=== PATIENT | male | born 1970 ===

== ENCOUNTER 2016-09-06 08:38 | Emergency (ER) | payer OTHER ==
--- NOTE | 2016-09-06 09:34 | UC ---
Shoulder Pain HPI - HPI Summary HPI Summary: Patient was lifting a heavy tray at work 5 days ago and woke up the next morning with pain in the front of his shoulder. Has had decreased movment in all directions since. - History of Current Complaint Chief Complaint: UCUpperExtremity Stated Complaint: ARM PAIN Time Seen by Provider: 09/06/16 09:23 Hx Obtained From: Patient Onset/Duration: Sudden Onset, Lasting Days Timing: Constant Severity Initially: Mild Severity Currently: Moderate Location Of Pain: Is Diffuse - around right shoulder Character: Aching, Stiffness Aggravating Factor(s): Movement Alleviating Factor(s): Rest Associated Signs And Symptoms: Positive: Negative Related History: Dominant Hand Right - Allergies/Home Medications Allergies/Adverse Reactions: Allergies Allergy/AdvReac Type Severity Reaction Status Date / Time No Known Allergies Allergy Verified 09/06/16 09:13 PMH/Surg Hx/FS Hx/Imm Hx Previously Healthy: Yes Endocrine History Of: Denies: Diabetes, Thyroid Disease Cardiovascular History Of: Denies: Cardiac Disorders, Hypertension Respiratory History Of: Denies: COPD, Asthma GI/ History Of: Denies: Ulcer - Surgical History Surgical History: None - Family History Known Family History: Negative: Cardiac Disease, Hypertension - Social History Alcohol Use: None Substance Use Type: None Smoking Status (MU): Never Smoked Tobacco Review of Systems Constitutional: Negative Skin: Bruising - over right ant deltoid Eyes: Negative ENT: Negative Respiratory: Negative Cardiovascular: Negative Gastrointestinal: Negative Genitourinary: Negative Motor: Negative Neurovascular: Negative Musculoskeletal: Negative Neurological: Negative Psychological: Negative All Other Systems Reviewed And Are Negative: Yes Physical Exam Triage Information Reviewed: Yes Appearance: Well-Appearing, Well-Nourished, Pain Distress Vital Signs: Initial Vital Signs Temp 97.7 F 09/06/16 09:05 Pulse 107 09/06/16 09:05 Resp 18 09/06/16 09:05 BP 146/95 09/06/16 09:05 Pulse Ox 99 09/06/16 09:05 Vital Signs Reviewed: Yes Eye Exam: Normal Eyes: Positive: Conjunctiva Clear ENT Exam: Normal ENT: Positive: Hearing grossly normal, Pharynx normal, TMs normal Dental Exam: Normal Neck exam: Normal Neck: Positive: Supple, Nontender, No Lymphadenopathy Respiratory Exam: Normal Respiratory: Positive: Chest non-tender, Lungs clear, Normal breath sounds Cardiovascular Exam: Normal Cardiovascular: Positive: RRR, No Murmur, Pulses Normal Abdominal Exam: Normal Abdomen Description: Positive: Nontender, No Organomegaly, Soft Bowel Sounds: Positive: Present Musculoskeletal: Positive: Strength Limited @ - in right arm, ROM Limited @ - ext, flex, abd, unable to perform apley sctch test due to pain. RROM 1/5 in Right shoulder., ROM in LEFT painfree and full Neurological Exam: Normal Neurological: Positive: Alert, Muscle Tone Normal Psychological Exam: Normal Skin: Positive: Other - small bruise over right ant deltoid from attempting to massage the shoulder, old bruise Shoulder Course/Dx - Course Assessment/Plan: hx obtained, exam performed, meds reviewed, xray obtained, patient took advil prior to arrival. sling and educated on heat and stretching and rest. - Differential Dx/Diagnosis Differential Diagnosis/HQI/PQRI: Arthritis, Contusion, Dislocation, Rotator Cuff Injury, Sprain, Strain, Tendonitis Provider Diagnoses: tendonitis. muscle strain of the right deltoid Discharge - Discharge Plan Condition: Stable Disposition: HOME Prescriptions: Meloxicam [Mobic] 15 mg PO DAILY #14 tab Patient Education Materials: Shoulder Pain (ED) Forms: *Work Release Additional Instructions: 1. wear the sling for support to rest the shoulder. 2. perform Range Of Motion in pain free range 2-3 times a day. 3. heat the shoulder before your perform the Range of motion 4. Take the meloxicam daily, do not use any additional Advil (Iburpofen) or Aleve.
--- NOTE | 2016-09-06 09:52 | RAD ---
INDICATION: Right shoulder pain COMPARISON: None TECHNIQUE: Routine frontal and Y views were obtained. FINDINGS: There is mild AC joint osteoarthritis. There is minor lipping of the inferior glenoid. The glenohumeral joint is otherwise intact. There are findings of calcific tendinitis IMPRESSION: MINOR OSTEOARTHRITIS. CALCIFIC TENDINITIS
== END 2016-09-06 10:22 | disposition home or self-care (01) ==
LOC: UCEAST 08:38
DX: M75.91 Shoulder lesion, unspecified, right shoulder (principal); S46.911A Strain of unspecified muscle, fascia and tendon at shoulder and upper arm level, right arm, initial encounter; X50.0XXA Overexertion from strenuous movement or load, initial encounter; Y93.89 Activity, other specified; Y92.9 Unspecified place or not applicable; Y99.0 Civilian activity done for income or pay
CPT/HCPCS: 99202; G0463